=== PATIENT | male | born 1995 | race Caucasian/White ===

== ENCOUNTER 2021-07-23 09:45 | Emergency (ER) | payer MEDICAID ==
--- NOTE | 2021-07-23 09:57 | EDM.PDOC ---
ED HPI GENERAL MEDICAL PROBLEM - General Chief Complaint: General Stated Complaint: DIZZINESS,HEADACHE AND CHEST PAIN Time Seen by Provider: 07/23/21 09:56 Source of Information: Reports: Patient, Family History Limitations: Reports: No Limitations - History of Present Illness INITIAL COMMENTS - FREE TEXT/NARRATIVE: Robert, 25-year-old male, accompanied by his significant other, presents emergency department today after syncope. Was seen at [facility] on the after experiencing syncope causing a laceration to the right eyebrow upper lid region with contusion. He underwent CT of the neck as well as the head with no significant findings. He underwent went a event again today with syncope with no injury. He has a history from several years ago when he had a significant fracture of the right foot having a blood clot and had associated syncopal episodes at that time and has been seen by cardiology on medication since then. He has had no recent illness or issues that would precipitate this, denying any major changes in activity, and has been eating and drinking healthy and compliant with medications. They present today for reevaluation as they did not receive any positive cause in the work-up in [place]. Onset: Today Duration: Hour(s):, Day(s):, Intermittent Location: Reports: Head Quality: Reports: Same as Previous Episode Severity: Moderate Improves with: Reports: None Worsens with: Reports: None Associated Symptoms: Reports: No Other Symptoms Headache Pain Score (Numeric/FACES): 9 - Related Data Allergies Allergy/AdvReac Type Severity Reaction Status Date / Time bee pollen Allergy Anaphylactic Verified 07/23/21 09:59 Shock Home Meds: Home Meds Midodrine 5 mg PO BID 11/22/20 [History] Past Medical History - Past Health History Medical/Surgical History: Denies Medical/Surgical History HEENT History: Reports: Head Cardiovascular History: Reports: Aneurysm, Syncope, Other (See Below) Other Cardiovascular History: 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 Respiratory History: Reports: None Gastrointestinal History: Reports: None Musculoskeletal History: Reports: Fracture Other Musculoskeletal History: Right foot fracture in 2012. Neurological History: Reports: Concussion, Head Trauma. Denies: Brain Injury, Headaches, Chronic, Migraines, Seizure Psychiatric History: Reports: None - Past Surgical History Cardiovascular Surgical History: Reports: Vascular Surgery, Other (See Below) Other Cardiovascular Surgeries/Procedures: Aneurysm repair of the left foot in 2019. Musculoskeletal Surgical History: Reports: ORIF, Other (See Below) Other Musculoskeletal Surgeries/Procedures:: ORIF of right foot fracture in 2012. - Past Imaging History Past Imaging History: Reports: CAT Scan, Xray Social & Family History - Family History Family Medical History: No Pertinent Family History - Caffeine Use Caffeine Use: Reports: None - Living Situation & Occupation Living situation: Reports: with Family (Mother) Occupation: Disabled (Secondary to recurrent syncope and left foot aneurysm.) ED ROS GENERAL - Review of Systems Review Of Systems: Comprehensive ROS is negative, except as noted in HPI. ED EXAM, GENERAL - Physical Exam Exam: See Below Free Text/Narrative:: Alert, oriented, in no distress. HEENT shows a Dermabond application to the laceration of the right upper lid with some contusion appearance and hematoma in the inner canthus. There is no injection nor icterus noted to either eye. There is no entrapment of extraocular motion with pupils being round reactive and equal. Neck is soft supple no lymphadenopathy. [place] moist mucous membranes with no erythema or exudate appreciated. Thorax is clear no wheezes nor crackles. Cardiac is regular S1-S2 with no appreciated murmur. Abdomen is soft bowel sounds are present there is no tenderness nor organomegaly appreciated. No edema to the extremities radial pulse correlates with apical heart rate. He is able to move upon command and just demonstrates no deficits physically nor cognitively. Significant other contributes to the history. #1 Interpretation EKG Date: 07/23/21 Time: 10:11 Rhythm: NSR Rate (Beats/Min): 56 [place]: Normal P-Wave: Present QRS: Normal ST-T: Normal QT: Normal Comparison: Change From Previous EKG (2020IMPROVED INTRAVENTRICULAR CONDUCTION DEFECTED FROM PRIOR ON Jun) Course - Vital Signs Last Recorded V/S: Last Vital Signs Temp 96.8 F L 07/23/21 09:54 Pulse 76 07/23/21 09:54 Resp 18 07/23/21 09:54 BP 145/88 H 07/23/21 09:54 Pulse Ox 96 07/23/21 09:54 - Orders/Labs/Meds Orders: Active Orders 24 hr Category Date Time Status EKG Documentation Completion [RC] ASDIRECTED Care 07/23/21 10:01 Active EKG 12 Lead [EK] Stat Ther 07/23/21 10:01 Ordered Labs: Laboratory Tests 07/23/21 07/23/21 07/23/21 Range/Units 10:05 10:05 10:05 WBC 9.62 (5.00-10.00) 10^3/uL RBC 5.52 (4.50-6.00) 10^6/uL Hgb 16.1 (13.0-17.0) g/dL Hct 47.9 (40.0-52.0) % MCV 86.8 (82.0-92.0) fL MCH 29.2 (27.0-31.0) pg MCHC 33.6 (32.0-36.0) g/dL RDW 13.0 (11.5-14.5) % Plt Count 308 (150-400) 10^3/uL MPV 9.4 (7.4-10.4) fL Immature Gran % (Auto) 0.1 (0.0-5.0) % Neut % (Auto) 70.0 (50.0-70.0) % Lymph % (Auto) 19.9 L (20.0-40.0) % [place] % (Auto) 6.8 (2.0-8.0) % Eos % (Auto) 2.9 (1.0-3.0) % Baso % (Auto) 0.3 (0.0-1.0) % Neut # (Auto) 6.74 (2.50-7.00) 10^3/uL Lymph # (Auto) 1.91 (1.00-4.00) 10^3/uL Bowman # (Auto) 0.65 (0.10-0.80) 10^3/uL Eos # (Auto) 0.28 (0.10-0.30) 10^3/uL Baso # (Auto) 0.03 (0.00-0.10) 10^3/uL Immature Gran # (Auto) 0.01 (0.00-0.50) 10^3/uL Sodium 139 (136-145) mmol/L Potassium 3.9 (3.5-5.1) mmol/L Chloride 101 (98-107) mmol/L Carbon Dioxide 26.7 (21.0-32.0) mmol/L Anion Gap 15.2 H (5-15) mmol/L BUN 7 (7-18) mg/dL Creatinine 1.08 (0.51-1.17) mg/dL Est Cr Clr Drug Dosing 107.02 mL/min Estimated GFR (MDRD) > 60 mL/min Glucose 99 (70-140) mg/dL Calcium 9.0 (8.7-10.3) mg/dL Total Bilirubin 0.7 (0.2-1.0) mg/dL AST 18 (15-37) U/L ALT 54 (14-63) U/L Alkaline Phosphatase 79 (46-116) U/L Troponin I High Sens 4.500 (0-76.000) pg/mL C-Reactive Protein < 0.4 (0.0-0.9) mg/dL Total Protein 7.4 (6.4-8.2) g/dL Albumin 4.38 (3.40-5.00) g/dL Departure - Departure Time of Disposition: 11:32 Disposition: Home, Self-Care 01 Condition: Good Clinical Impression: Syncope and collapse, Post-concussion headache Contusion of face Qualifiers: Encounter type: subsequent encounter Qualified Code(s): S00.83XD - Contusion of other part of head, subsequent encounter - Discharge Information *PRESCRIPTION DRUG MONITORING PROGRAM REVIEWED*: Not Applicable *COPY OF PRESCRIPTION DRUG MONITORING REPORT IN PATIENT EMANUEL: Not Applicable Instructions: Facial or Scalp Contusion, [id number], Syncope, [id number] Referrals: Brianna Stanley PA-C [Physician] - Forms: ED Department Discharge Additional Instructions: All of the performed evaluations and laboratory tests today are negative for any cause of your syncope/collapse. The headache/eye pain swelling and bruising are typical for the injury you sustained on the . May take ibuprofen or Tylenol as well as heat or ice compress to the area to help with discomfort. You will get a significant black eye from this most likely. The swelling in the corner of your eye may worsen slightly as well. In the event you have visual concerns that develop, you would be best served by seeing a software developer manager or merchant patroller. With no cause found in the tests done in [place] or here today, you will need to follow-up with your clinic next week to get the appropriate referrals made. This may include neurology for seizure rule out, cardiovascular for monitoring as well as heart testing, ultrasound for circulation studies of your neck, as well as other incidental testing such as tilt table and others. Contact your clinic today to see if you are able to schedule an appointment for next week with Brianna if she is available in [place]. Continue your medications as directed. Make sure you eat healthy maintain good fluid intake, and avoid any activity that precipitates lightheadedness or dizziness. Return to the nearest emergency department if symptoms recur or concerns urgently develop. Sepsis Event Note (ED) - Focused Exam Vital Signs: Vital Signs Temp Pulse Resp BP Pulse Ox 07/23/21 09:54 96.8 F L 76 18 145/88 H 96 - Problem List & Annotations (1) Post-concussion headache SNOMED Code(s): 63512248 Code(s): G44.309 - POST-TRAUMATIC HEADACHE, UNSPECIFIED, NOT INTRACTABLE Status: Acute Priority: High Current Visit: Yes (2) Contusion of face SNOMED Code(s): 974012504 Code(s): S00.83XA - CONTUSION OF OTHER PART OF HEAD, INITIAL ENCOUNTER Status: Acute Priority: High Current Visit: Yes Qualifiers: Encounter type: subsequent encounter Qualified Code(s): S00.83XD - Contusion of other part of head, subsequent encounter (3) Syncope and collapse SNOMED Code(s): 115850669 Code(s): R55 - SYNCOPE AND COLLAPSE Status: Acute Priority: High Current Visit: Yes - Problem List Review Problem List Initiated/Reviewed/Updated: Yes - My Orders Last 24 Hours: My Active Orders 07/23/21 10:01 EKG Documentation Completion [RC] ASDIRECTED EKG 12 Lead [EK] Stat - Assessment/Plan Last 24 Hours: My Active Orders 07/23/21 10:01 EKG Documentation Completion [RC] ASDIRECTED EKG 12 Lead [EK] Stat Plan: All of the performed evaluations and laboratory tests today are negative for any cause of your syncope/collapse. The headache/eye pain swelling and bruising are typical for the injury you sustained on the . May take ibuprofen or Tylenol as well as heat or ice compress to the area to help with discomfort. You will get a significant black eye from this most likely. The swelling in the corner of your eye may worsen slightly as well. In the event you have visual concerns that develop, you would be best served by seeing a software developer manager or merchant patroller. With no cause found in the tests done in [place] or here today, you will need to follow-up with your clinic next week to get the appropriate referrals made. This may include neurology for seizure rule out, cardiovascular for monitoring as well as heart testing, ultrasound for circulation studies of your neck, as well as other incidental testing such as tilt table and others. Contact your clinic today to see if you are able to schedule an appointment for next week with Brianna if she is available in [place]. Continue your medications as directed. Make sure you eat healthy maintain good fluid intake, and avoid any activity that precipitates lightheadedness or dizziness. Return to the nearest emergency department if symptoms recur or concerns urgently develop.
[2021-07-23 09:59] VITALS: BP 145/88; PULSE 76
[2021-07-23 10:42] LABS: ANION GAP 15.2 mmol/L (5-15); CHLORIDE,CL 101 mmol/L (98-107); SODIUM,NA 139 mmol/L (136-145)
--- NOTE | 2021-07-23 11:11 | CR ---
[id number] RAD/RAD Chest PA And Lateral EXAM: RAD Chest PA And Lateral INDICATION: FAINTING SPELLS. COMPARISON: None. DISCUSSION/IMPRESSION: Cardiomediastinal silhouette is normal in size and contour. Lungs are clear. No pleural effusion or pneumothorax. Niall Campo MD 07/23/21 3210 Thank you for allowing us to participate in the care of your patient.
== END 2021-07-23 11:45 | disposition home or self-care (01) ==
LOC: KA.ED 09:45
DX: S00.83XA Contusion of other part of head, initial encounter (principal); F07.81 Postconcussional syndrome; R55 Syncope and collapse; Z91.030 Bee allergy status
CPT/HCPCS: 36415; 71046; 80053; 84484; 85025; 86140; 93005; 93010; 99284; 99284-25